=== PATIENT | female | born 1960 | race Caucasian/White ===

== ENCOUNTER → 2017-09-04 | Outpatient (CLI) | payer MEDICARE ==
[~2017-09-04] MED LIST: CONTRAST GIVEN MC
[2017-09-04 13:27] LABS: ISTAT CREATININE 0.9 mg/dL (0.6-1.1)
[2017-09-04] MEDS: IOHEXOL 300 MG/ML 100ML VIAL. IV (13:27)
== END | disposition home or self-care (01) ==
LOC: KCIC CT 12:52
DX: E04.1 Nontoxic single thyroid nodule (principal); K11.8 Other diseases of salivary glands; I10 Essential (primary) hypertension; E11.9 Type 2 diabetes mellitus without complications; Z87.891 Personal history of nicotine dependence
CPT/HCPCS: 70491; 82565; Q9967

== ENCOUNTER → 2017-09-14 | Outpatient (CLI) | payer MEDICARE | END | disposition home or self-care (01) | LOC: KCIC US 10:38 | DX: E04.2 Nontoxic multinodular goiter (principal) | CPT/HCPCS: 76536 ==

== ENCOUNTER → 2018-02-19 | Outpatient (CLI) | payer MEDICARE ==
[~2018-02-19] MED LIST changes: -CONTRAST GIVEN MC; +GABA-585 PO; +LISI10TA2 PO; +OXYC10TA PO; +OXYC40TA21 PO; +TIZA4CAP3 PO
--- NOTE | 2018-02-19 17:30 | KCIC ---
THYROID ULTRASOUND History: Follow-up of thyroid nodules. Comparison: Thyroid ultrasound, September 14, 2017. Technique: Multiple grayscale and color Doppler images of the thyroid gland were obtained. Findings: Measurements in length, AP (height), and transverse (width), respectively, unless otherwise stated. The isthmus measures 3 mm and is homogeneous. The left thyroid lobe measures 3.9 x 1.2 x 1.7 cm. There is a TR3 nodule in the upper left thyroid lobe measuring 7 x 6 x 10 mm. The nodule previously measured 11 x 6 x 9 mm. The right thyroid lobe measures 4.4 x 2.1 x 2.1 cm. Dominant nodule in the inferior right thyroid lobe measures 13 x 10 x 12 mm, previously 13 x 11 x 13 mm. Nodule is categorized as TR4. There are 2 other subcentimeter TR4 nodules in the right thyroid lobe. ACR Thyroid Imaging, Reporting And Data System (TI-RADS): White Paper Of The ACR TI-RADS Committee. Journal of the [employer], volume 14, issue 5, pages 587-595 (August 2016). IMPRESSION: Interval stability of bilateral thyroid nodules. Suggest ultrasound follow-up in 12 months. Electronically signed by: Jacinto Diez MD (02/19/2018 5:27 PM) [id number]
== END | disposition home or self-care (01) ==
LOC: KCIC US 13:59
PROVIDERS: ATTEND Otolaryngology
DX: E04.2 Nontoxic multinodular goiter (principal)
CPT/HCPCS: 76536